=== PATIENT | male | born 1965 | race Caucasian/White ===

== ENCOUNTER 2024-06-22 09:30 | Emergency (ER) | payer OTHER, SELFPAY ==
[2024-06-22 09:40] VITALS: BP 102/71
--- NOTE | 2024-06-22 10:48 | ED.SKININJ ---
HPI-Injury
General
Chief Complaint: Skin Surface Trauma
Source: patient
Exam Limitations: none
Time Seen by Provider: 06/22/24 10:31
History of Present Illness-Injury
Initial Injury comments:
59-year-old [id number] male presents with laceration to left thumb sustained today. He cut himself with a kitchen knife. Went to the [facility] and they sent him here for evaluation. His tetanus vaccine was updated at the family
doctor's office.
Phy Exam
Physical Exam
Physical Exam:
General: Well-appearing male no acute respiratory distress
HEENT: Normocephalic atraumatic
Skin: Half centimeter avulsion laceration superficial portion distal aspect left thumb. Mild oozing. No tendon involvement
Course
Vital Signs
Initial and Last Documented VS:
Initial Vital Signs
Temp Pulse Resp BP Pulse Ox
98.4 F 83 18 102/71 99
06/22/24 09:40 06/22/24 09:40 06/22/24 09:40 06/22/24 09:40 06/22/24 09:40
Last Documented Vital Signs
Temp Pulse Resp BP Pulse Ox
98.4 F 83 18 102/71 99
06/22/24 09:40 06/22/24 09:40 06/22/24 09:40 06/22/24 09:40 06/22/24 09:40
MDM/Problems Addressed
Differential Diagnosis Includes:
Avulsion laceration left thumb. The wound was irrigated with saline anesthetized with 1% lidocaine and cauterized using silver nitrate. A dressing was then applied. Wound care instructions were given. No indication for sutures at this time.
*Critical Care Note
Total Time (30-74mins, 75-104mins- exclusive of procedures): Not Applicable
ED Attending Note
-
Portions of this chart may have been created with voice recognition software.� Occasional wrong word or��sound alike� substitutions may have occurred due to the inherent limitations of voice recognition software.
Discharge Plan
Departure
Patient Disposition: Home (Routine Discharge)
Date of Disposition: 06/22/24
Time of Disposition: 10:50
Patient with high blood pressure during this ER visit?: No
Discharge Problem:
Laceration
Instructions: Wound Care (DC)
Activity Restrictions/Additional Instructions:
Keep current dressing on for 24 hours. Change as needed otherwise. Return if needed
Interventions
Interventions:
*Risk Screen - Suicide Last Done: 06/22/24 09:40
*General Assessment Last Done: 06/22/24 09:40
*Neglect/Abuse Screening Last Done: 06/22/24 09:40
Discharge Date and Time
Print Language: PAKISTANI
[2024-06-22 11:00] VITALS: BP 134/79
== END 2024-06-22 11:00 | disposition home or self-care (01) ==
LOC: EMR 09:30
PROVIDERS: EMERGENCY PHYSICIAN Student in an Organized Health Care Education/Training Program; FAMILY PHYSICIAN Family Medicine
DX: S61.012A Laceration without foreign body of left thumb without damage to nail, initial encounter (principal); W26.0XXA Contact with knife, initial encounter
CPT/HCPCS: 99282

== ENCOUNTER 2025-05-11 06:25 | Day surgery (SDC) | payer OTHER, SELFPAY | END 2025-05-11 10:10 | disposition home or self-care (01) | LOC: GI 06:25 | PROVIDERS: ATTENDING PHYSICIAN Specialist | DX: Z12.11 Encounter for screening for malignant neoplasm of colon (principal); K64.8 Other hemorrhoids; Z86.0101 Personal history of adenomatous and serrated colon polyps | CPT/HCPCS: G0105 ==